=== PATIENT | female | born 1985 | race Caucasian/White ===

== ENCOUNTER 2021-11-26 20:52 | Emergency (ER) | payer OTHER ==
[2021-11-26 21:52] LABS: HEMOGLOBIN 12.3 gm/dl (12.3-15.3); RED BLOOD COUNT 4.28 M/UL (4.00-5.10); WHITE BLOOD COUNT 9.5 K/UL (4.5-11.0)
[2021-11-26 22:18] LABS: BUN/CREATININE RATIO 18 (0-10)
[2021-11-27] MEDS ORDERED: IPRAT-ALBUT 0.5-3 ML INH (04:13)
[2021-11-27] MEDS ORDERED: PREDNISONE20 MG PO (04:13)
== END 2021-11-27 04:20 | disposition home or self-care (01) ==
LOC: ER1 20:52
PROVIDERS: Family Medicine
DX: J45.901 Unspecified asthma with (acute) exacerbation (principal); E87.6 Hypokalemia
CPT/HCPCS: 71045; 80053; 82550; 82553; 84484; 85025; 93005; 94664; 99285